=== PATIENT | male | born 1940 | race Caucasian/White ===

== ENCOUNTER 2019-06-14 10:44 | Emergency (ER) | payer MEDICARE, BC | END 2019-06-14 11:15 | disposition home or self-care (01) | LOC: SCSER 10:44 | DX: M79.671 Pain in right foot (principal); I48.91 Unspecified atrial fibrillation; E11.9 Type 2 diabetes mellitus without complications; I10 Essential (primary) hypertension; Z79.899 Other long term (current) drug therapy; Z79.82 Long term (current) use of aspirin | CPT/HCPCS: 99283 ==